=== PATIENT | female | born 1970 | race Hispanic/Latino ===

== ENCOUNTER 2018-03-24 05:31 | Emergency (ER) | payer OTHER ==
[~2018-03-24] VITALS: Ht 162.6 cm; Wt 83.5 kg
[2018-03-24] MEDS ORDERED: MORPHINE SULFATE 2 MG/ML SYR IV STA (05:45)
[2018-03-24] MEDS ORDERED: ONDANSETRON HCL INJ 2 MG/ML VIAL IV STA (05:45)
[2018-03-24] MEDS ORDERED: PANTOPRAZOLE 40 MG 10ML VIAL IV STA (05:45)
[2018-03-24] MEDS ORDERED: SODIUM CHLORIDE 0.9% 1000ML 1,000 ML IV STA (05:45)
[2018-03-24 06:07] LABS: BASOPHILS % 0.4 % (0.0-1.0); EOSINOPHILS # (AUTO) 0.2 (0.0-0.4); EOSINOPHILS % 2.1 % (0.0-6.0); HEMATOCRIT 37.4 % (34.2-44.1); HEMOGLOBIN 11.5 g/dL (12.0-16.0); LYMPHOCYTES # (AUTO) 2.4 (1.0-3.2); LYMPHOCYTES % 28.1 % (18.0-39.1); MEAN CORPUSCULAR HEMOGLOBIN 22.6 pg (28-32); MEAN CORPUSCULAR HGB CONC 30.7 g/dL (31-35); MEAN CORPUSCULAR VOLUME 73.6 fL (81-99); MONOCYTES # (AUTO) 0.7 (0.2-0.8); MONOCYTES % 7.8 % (4.4-11.3); NEUTROPHILS # (AUTO) 5.2 (2.1-6.9); NEUTROPHILS % 61.4 % (38.7-80.0); PLATELET COUNT 287 x10e3/uL (140-360); RED BLOOD COUNT 5.08 x10e6/uL (3.6-5.1)
[2018-03-24 06:15] LABS: CLARITY,URINE CLEAR (CLEAR); COLOR,URINE YELLOW (YELLOW); LEUKOCYTE ESTERASE ,URINE TRACE (NEGATIVE); NITRITE,URINE NEGATIVE (NEGATIVE)
[2018-03-24 06:16] LABS: BILIRUBIN,URINE NEGATIVE (NEGATIVE); INR 1.15; KETONES,URINE NEGATIVE (NEGATIVE); PROTEIN,URINE DIPSTICK NEGATIVE (NEGATIVE); PROTHROMBIN TIME 13.8 seconds (11.9-14.5); URINE UROBILINOGEN 0.2 mg/dL (0.2 - 1)
[2018-03-24 06:17] LABS: PARTIAL THROMBOPLASTIN TIME 29.8 seconds (23.8-35.5); PREGNANCY TEST, URINE NEGATIVE (NEGATIVE)
[2018-03-24 06:32] LABS: ALANINE AMINOTRANSFERASE 88 IU/L (0-55); ALBUMIN 3.5 g/dL (3.5-5.0); ALBUMIN/GLOBULIN RATIO 0.8 (0.8-2.0); ALKALINE PHOSPHATASE 90 IU/L (40-150); ANION GAP 10.9 mmol/L (8-16); BLOOD UREA NITROGEN 8 mg/dL (7-26); BUN/CREATININE RATIO 12 (6-25); CALCIUM 9.1 mg/dL (8.4-10.2); CARBON DIOXIDE 25 mmol/L (22-29); CHLORIDE 100 mmol/L (98-107); CREATINE KINASE 50 IU/L (29-168); CREATININE, SERUM 0.69 mg/dL (0.57-1.11); EST GLOMERULAR FILTRATION RATE > 60 ML/MIN (60-); GLUCOSE 265 mg/dL (74-118); LIPASE 36 U/L (8-78); MAGNESIUM 1.4 MG/DL (1.3-2.1); POTASSIUM 3.9 mmol/L (3.5-5.1); SODIUM 132 mmol/L (136-145)
[2018-03-24 07:16] LABS: BACTERIA,URINE RARE /HPF; EPITHELIAL CELLS,URINE FEW /LPF
[2018-03-24 07:17] LABS: AMORPHOUS SEDIMENT,URINE FEW (FEW)
--- NOTE | 2018-03-24 09:07 | Diagnostic Imaging Report ---
PROCEDURE: CT ABDOMEN AND PELVIS WITH CONTRAST TECHNIQUE: The abdomen and pelvis were scanned utilizing a multidetector helical scanner from the diaphragm to the lesser trochanter after the IV administration of 100 cc of Isovue 370 and the oral administration of water. Coronal and sagittal multiplanar reformations were obtained. DLP: 823.62 mGy-cm COMPARISON: None. INDICATIONS: LEFT LOWER QUADRANT PAIN FINDINGS: LOWER THORAX: Normal. HEPATOBILIARY: Diffuse hepatic steatosis without focal hepatic lesions. No biliary ductal dilatation. SPLEEN: No splenomegaly. There is a 1.5 cm splenule. PANCREAS: No focal masses or ductal dilatation. ADRENALS: No adrenal nodules. KIDNEYS/URETERS: Nonobstructing 8-10 mm left lower pole renal stone. No hydronephrosis or solid mass lesions. PELVIC ORGANS/BLADDER: Unremarkable. PERITONEUM / RETROPERITONEUM: No free air or fluid. LYMPH NODES: Small less than 1 cm in size anterior diaphragmatic lymph node. VESSELS: Calcified plaque at the origin of the celiac trunk. GI TRACT: No distention or wall thickening. The appendix is normal. BONES AND SOFT TISSUES: Mild degenerative changes of the spine. There is a fat containing umbilical hernia measuring 4.4 cm. The opening of the hernia sac measures 1.2 cm. IMPRESSION: 1. Left lower pole renal stone. 2. Diffuse hepatic steatosis. 3. Fat-containing umbilical hernia. Randy Platt D.O. Dictated by: Randy Platt D.O. on 03/24/2018 at 9:11 Electronically approved by: Randy Platt D.O. on 03/24/2018 at 9:11
[2018-03-24] MEDS ORDERED: MACROBID 100 M100 MG PO (09:24)
[2018-03-24] MEDS ORDERED: SODIUM CHLORIDE 0.9% 50ML 50 ML ONE (14:28)
[2018-03-24] MEDS ORDERED: IOPAMIDOL 370 MG/ML 200 ML INFUS..BTL INJ ONE (14:28)
[2018-04-04] MEDS ORDERED: LISINOPRIL10 MG PO (17:03)
[2018-04-04] MEDS ORDERED: GLYBURIDE5 MG PO (17:03)
[2018-04-04] MEDS ORDERED: ECOTRIN81 MG (17:03)
[2018-04-04] MEDS ORDERED: METFORMIN HCL850 MG PO (17:03)
== END 2018-03-24 10:20 | disposition home or self-care (01) ==
LOC: ER 05:31
DX: R10.32 Left lower quadrant pain (principal); N30.91 Cystitis, unspecified with hematuria; E11.9 Type 2 diabetes mellitus without complications; K21.9 Gastro-esophageal reflux disease without esophagitis
CPT/HCPCS: 36415; 74177; 80053; 81001; 81025; 82550; 82553; 83605; 83690; 83735; 84484; 85025; 85610; 85730; 87086; 87186; 99284; J2270; J2405; J7030; Q9967

== ENCOUNTER → 2018-04-09 | Day surgery (SDC) | payer OTHER ==
[2018-04-04 13:42] LABS: BASOPHILS % 0.3 % (0.0-1.0); EOSINOPHILS # (AUTO) 0.2 (0.0-0.4); EOSINOPHILS % 1.9 % (0.0-6.0); HEMATOCRIT 38.3 % (34.2-44.1); HEMOGLOBIN 11.7 g/dL (12.0-16.0); LYMPHOCYTES # (AUTO) 2.4 (1.0-3.2); LYMPHOCYTES % 23.3 % (18.0-39.1); MEAN CORPUSCULAR HEMOGLOBIN 22.5 pg (28-32); MEAN CORPUSCULAR HGB CONC 30.5 g/dL (31-35); MEAN CORPUSCULAR VOLUME 73.8 fL (81-99); MONOCYTES % 9.3 % (4.4-11.3); NEUTROPHILS # (AUTO) 6.7 (2.1-6.9); PLATELET COUNT 298 x10e3/uL (140-360); RED BLOOD COUNT 5.19 x10e6/uL (3.6-5.1); RED CELL DISTRIBUTION WIDTH 15.9 % (11.7-14.4)
[2018-04-04 13:57] LABS: ANION GAP 14.7 mmol/L (8-16); BLOOD UREA NITROGEN 13 mg/dL (7-26); BUN/CREATININE RATIO 17 (6-25); CALCIUM 9.8 mg/dL (8.4-10.2); CARBON DIOXIDE 23 mmol/L (22-29); CHLORIDE 102 mmol/L (98-107); CREATININE, SERUM 0.78 mg/dL (0.57-1.11); EST GLOMERULAR FILTRATION RATE > 60 ML/MIN (60-); POTASSIUM 4.7 mmol/L (3.5-5.1); SODIUM 135 mmol/L (136-145)
[2018-04-04 14:07] LABS: GLUCOSE 417 mg/dL (74-118)
[~2018-04-09] MED LIST: CEFAZOLIN SOD 2 GM/D5W 50ML 50 ML IV ONE; CEFTRIAXONE SOD 1 GM VIAL ONE; ECOTRIN81 MG; GLYBURIDE5 MG PO; LISINOPRIL10 MG PO; MACROBID 100 M100 MG PO; METFORMIN HCL850 MG PO
--- NOTE | 2018-04-09 13:16 | Diagnostic Imaging Report ---
PROCEDURE:X-RAY ABDOMEN - KUB COMPARISON:CT abdomen and pelvis with contrast 03/24/2018. INDICATIONS:PREOPERATIVE FOR RENAL STONE FINDINGS: 9 mm ovoid calculus projects over the lower pole of the left renal shadow. No additional suspicious calcifications project over the renal shadows or expected ureteral courses. Bowel gas pattern is nonobstructive. Regional skeletal structures are intact. CONCLUSION: 9 mm left lower pole renal calculus, unchanged in position relative to financial services consultant tomogram from CT abdomen and pelvis 03/24/2018. Dictated by: Elijah Solis M.D. on 04/09/2018 at 13:21 Electronically approved by: Elijah Solis M.D. on 04/09/2018 at 13:21
== END | disposition home or self-care (01) ==
LOC: LAB 04-04 05:00 → OR 10:27 → EDSTATUS 13:00
PROVIDERS: ATTEND Surgery
DX: K42.9 Umbilical hernia without obstruction or gangrene (principal); Z01.810 Encounter for preprocedural cardiovascular examination; Z01.812 Encounter for preprocedural laboratory examination; Z53.09 Procedure and treatment not carried out because of other contraindication
CPT/HCPCS: 36415; 74018; 80048; 81025; 82948; 85025; 93005; J0696

== ENCOUNTER → 2018-04-11 | Day surgery (SDC) | payer OTHER ==
[~2018-04-11] MED LIST changes: +BUPIVACAINE HCL 0.5% INJ 30 ML VIAL INJ ONE; -CEFTRIAXONE SOD 1 GM VIAL ONE; +DEXAMETHASONE SOD PHOS INJ 4 MG/ML VIAL ONE; +FENTANYL CITRATE/PF 100MCG/2 ML INJ ONE; +INSULIN REGULAR, HUMAN 100 UNIT/1 ML 3ML VIAL ONE; +KETOROLAC TROMETHAMINE 30 MG/ML VIAL ONE; +LIDOCAINE HCL 2% LOCAL INJ 5 ML SDV VIAL INJ ONE; +MIDAZOLAM HCL 2 MG/2 ML VIAL ONE; +ONDANSETRON HCL INJ 2 MG/ML VIAL ONE; +PROPOFOL IV EMULSION 10 MG/ML 20 ML VIAL ONE; +ROCURONIUM BROMIDE 10 MG/ML 5ML VIAL ONE; +SEVOFLURANE INHAL SOLN 250 ML PEN BTL ONE
--- NOTE | 2018-04-11 18:49 | Operative Report ---
DATE OF PROCEDURE: April 11, 2018 PREOPERATIVE DIAGNOSIS: Umbilical hernia. POSTOPERATIVE DIAGNOSIS: Umbilical hernia with ventral hernia. PROCEDURES PERFORMED: 1. Repair of umbilical hernia. 2. Repair of ventral hernia. SERVICE CENTER ASSISTANT: None. ANESTHESIA: General. INDICATIONS AND FINDINGS: Patient a 47-year-old female who presented complaints of pain in her umbilicus. CT scan revealed umbilical hernia. At surgery there were 2 separate hernias. There was an umbilical hernia with a fascial defect that was approximately 8 mm. Inferior to this was a ventral hernia with a fascial defect about 1.5 cm which contained a herniated mass that was about 3.5 cm in diameter and containing omentum which appeared chronically incarcerated. TECHNIQUE: After adequate general endotracheal anesthesia, patient in supine position, the abdomen was prepped and draped in sterile fashion with [place] solution. A transverse incision was made inferior to the umbilicus and carried down through the subcutaneous tissue. The umbilicus was dissected free from a herniated mass. The herniated mass at the umbilicus was found to be about 1.5 cm in diameter. This was dissected free down to the fascia and then reduced beneath the fascia. There was a fascial defect that was about 8 mm at this area. This was closed transversely with a running suture of 0 Prolene. Inferior to this about 1.5 to 2 cm was a larger herniated mass. This was dissected free from the surrounding tissues down to the fascia. There was chronically incarcerated omentum. The herniated mass was dissected free down to the fascia and freed from the fascia throughout the circumference of the hernia defect. Herniated mass once it was freed from the fascia was able to be reduced into the peritoneal cavity. This fascial defect also was closed directly transversely with a running suture of 0 Prolene. Hemostasis was seen to be adequate. The wound was irrigated with saline, inspected for hemostasis, which was seen to be adequate. The wound was then infiltrated with 1/2 percent Marcaine. The umbilicus was then sutured to the fascia using 3-0 Vicryl. The subcutaneous tissue was closed with a running suture 3-0 Vicryl. Skin was closed with a running subcuticular suture of 4-0 Vicryl. Dermabond and a sterile dressing were applied. The patient tolerated the procedure well. Estimated blood loss was 10 mL. There were no complications. All counts were correct. The patient was taken to the recovery room in satisfactory condition. Job#: [id number] EV cc:MATHEUS WILLS MD
== END | disposition home or self-care (01) ==
LOC: OR 13:21
PROVIDERS: ATTEND Surgery
DX: K43.6 Other and unspecified ventral hernia with obstruction, without gangrene (principal); K42.9 Umbilical hernia without obstruction or gangrene; E11.9 Type 2 diabetes mellitus without complications; I25.2 Old myocardial infarction; I10 Essential (primary) hypertension; F41.9 Anxiety disorder, unspecified; Z79.84 Long term (current) use of oral hypoglycemic drugs; Z79.82 Long term (current) use of aspirin; Z68.39 Body mass index [BMI] 39.0-39.9, adult; Z87.440 Personal history of urinary (tract) infections
CPT/HCPCS: 36415; 49561; 49585; 82948; J1100; J1885; J2001; J2250; J2405

== ENCOUNTER → 2019-07-30 | Outpatient (CLI) | payer OTHER ==
[~2019-07-30] MED LIST changes: -BUPIVACAINE HCL 0.5% INJ 30 ML VIAL INJ ONE; -CEFAZOLIN SOD 2 GM/D5W 50ML 50 ML IV ONE; -DEXAMETHASONE SOD PHOS INJ 4 MG/ML VIAL ONE; -FENTANYL CITRATE/PF 100MCG/2 ML INJ ONE; -INSULIN REGULAR, HUMAN 100 UNIT/1 ML 3ML VIAL ONE; -KETOROLAC TROMETHAMINE 30 MG/ML VIAL ONE; -LIDOCAINE HCL 2% LOCAL INJ 5 ML SDV VIAL INJ ONE; -MIDAZOLAM HCL 2 MG/2 ML VIAL ONE; -ONDANSETRON HCL INJ 2 MG/ML VIAL ONE; -PROPOFOL IV EMULSION 10 MG/ML 20 ML VIAL ONE; -ROCURONIUM BROMIDE 10 MG/ML 5ML VIAL ONE; -SEVOFLURANE INHAL SOLN 250 ML PEN BTL ONE
--- NOTE | 2019-07-31 08:46 | Diagnostic Imaging Report ---
EXAMINATION: MRI of the lumbar spine without contrast HISTORY: Low back pain radiating to the right lower extremity with numbness COMPARISON: None. TECHNIQUE: Sagittal T1, T2, STIR; axial T2 and proton density. FINDINGS: It is assumed that there are 5 lumbar vertebrae. Curvature/Alignment: Normal lordosis. Vertebrae: No evidence of recent fracture, infection, or neoplasm. Conus: Normal, terminating at L1 Cauda equina: Circumferential narrowing of the thecal sac/cauda equina at L4-5 due to severe stenoses as detailed below. Lower thoracic: Unremarkable. Paraspinal soft tissues: Unremarkable. Degenerative changes: L1-L2: Unremarkable. L2-L3: Minimal symmetric disc bulge and facet arthrosis without canal or foraminal stenoses. L3-L4: Decreased disc T2 signal intensity, symmetric disc bulge, ligamenta flava thickening and facet arthrosis. Mild spinal canal and bilateral foraminal stenoses mainly on the left. L4-L5: Decreased disc height and T2 signal intensity, symmetric disc bulge, ligamenta flava thickening and severe facet arthrosis. Grade 1 degenerative anterolisthesis. Severe spinal canal and minimal foraminal narrowing. L5-S1: Decreased disc T2 signal intensity, minimal symmetric disc bulge and moderate facet arthrosis. Minimal canal and foramina narrowing. IMPRESSION: 1. Mild degenerative spinal canal and bilateral foraminal stenoses at L3-4. 2. Severe degenerative spinal canal stenosis at L4-5. 3. Grade 1 degenerative spondylolisthesis at L4-5. Signed by: Dr. Sara Rivera M.D. on 07/31/2019 8:43 AM
== END ==
LOC: MRI 14:40
PROVIDERS: ATTEND Family Medicine
DX: M54.41 Lumbago with sciatica, right side (principal)
CPT/HCPCS: 72148

== ENCOUNTER → 2019-10-15 | Day surgery (SDC) | payer BC ==
[~2019-10-15] MED LIST changes: +CRESTOR10 MG PO; +DEXAMETHASONE SOD PHOS 10 MG/1 ML VIAL ONE; +FENTANYL CITRATE/PF 100MCG/2 ML INJ ONE; +GABAPENTIN300 MG PO; +GLIMEPIRIDE2 MG PO; +LIDOCAINE HCL 1% 30ML-PF VIAL ONE; +LOSARTAN POTAS100 MG PO; +MIDAZOLAM HCL 2 MG/2 ML VIAL ONE; +PROPOFOL IV EMULSION 10 MG/ML 20 ML VIAL ONE
[2019-10-15 07:40] VITALS: BP 120/61
== END | disposition home or self-care (01) ==
LOC: OR 05:31
PROVIDERS: ATTEND Physical Medicine & Rehabilitation Pain Medicine
DX: M54.16 Radiculopathy, lumbar region (principal); M48.061 Spinal stenosis, lumbar region without neurogenic claudication; M51.26 Other intervertebral disc displacement, lumbar region; E11.9 Type 2 diabetes mellitus without complications; I10 Essential (primary) hypertension; Z01.810 Encounter for preprocedural cardiovascular examination; Z79.84 Long term (current) use of oral hypoglycemic drugs; Z68.38 Body mass index [BMI] 38.0-38.9, adult
CPT/HCPCS: 36415; 64483; 81025; 82948; 93005; J1100; J2001; J2250; J2704; J3010; 77003

== ENCOUNTER 2019-11-19 16:53 | Outpatient (RCR) | payer OTHER ==
[~2019-11-19 16:53] MED LIST changes: -DEXAMETHASONE SOD PHOS 10 MG/1 ML VIAL ONE; -FENTANYL CITRATE/PF 100MCG/2 ML INJ ONE; -LIDOCAINE HCL 1% 30ML-PF VIAL ONE; -MIDAZOLAM HCL 2 MG/2 ML VIAL ONE; -PROPOFOL IV EMULSION 10 MG/ML 20 ML VIAL ONE
== END 2019-11-28 ==
LOC: PT 16:53
PROVIDERS: ATTEND Neurological Surgery
DX: M48.062 Spinal stenosis, lumbar region with neurogenic claudication (principal)
CPT/HCPCS: 97139

== ENCOUNTER 2019-12-01 16:56 | Outpatient (RCR) | payer BC, OTHER | END 2019-12-29 | LOC: PT 16:56 | PROVIDERS: ATTEND Neurological Surgery | DX: M17.12 Unilateral primary osteoarthritis, left knee (principal) | CPT/HCPCS: 97139 ==

== ENCOUNTER → 2020-07-01 | Day surgery (SDC) | payer BC, OTHER ==
[~2020-07-01] MED LIST changes: +ACETAMINOP325 MG/10 PO; +BACTRIM DS TAB1 EACH PO; +DEXAMETHASONE SOD PHOS 10 MG/1 ML VIAL ONE; +FENTANYL CITRATE/PF 100MCG/2 ML INJ ONE; +GABAPENTIN400 MG PO; +IOPAMIDOL 200 MG/ML 20 ML VIAL IT ONE; +LIDOCAINE HCL 1% 30ML-PF VIAL ONE; +LIDOCAINE HCL 2% LOCAL INJ 5 ML SDV VIAL INJ ONE; +LISINOPRIL2.5 MG PO; +MIDAZOLAM HCL 2 MG/2 ML VIAL ONE; +OLMESARTAN-HCT1 EAC1 PO; +PROPOFOL IV EMULSION 10 MG/ML 20 ML VIAL ONE; +TIZANIDINE HCL4 MG PO; +VICTOZA 3-0.6 MG/0.1 SC
[2020-07-01 07:25] VITALS: BP 143/70
== END | disposition home or self-care (01) ==
LOC: OR 05:30
PROVIDERS: ATTEND Physical Medicine & Rehabilitation Pain Medicine
DX: M54.16 Radiculopathy, lumbar region (principal); M51.26 Other intervertebral disc displacement, lumbar region; M48.062 Spinal stenosis, lumbar region with neurogenic claudication; I10 Essential (primary) hypertension; E11.9 Type 2 diabetes mellitus without complications; Z01.810 Encounter for preprocedural cardiovascular examination; Z01.812 Encounter for preprocedural laboratory examination; Z11.59 Encounter for screening for other viral diseases; Z79.84 Long term (current) use of oral hypoglycemic drugs
CPT/HCPCS: 36415; 64483; 64484; 81025; 82948; 93005; J1100; J2001 ×2; J2250; J2704; J3010; Q9967; U0002; 77003

== ENCOUNTER → 2020-08-19 | Outpatient (CLI) | payer BC, OTHER ==
[~2020-08-19] MED LIST changes: -DEXAMETHASONE SOD PHOS 10 MG/1 ML VIAL ONE; -FENTANYL CITRATE/PF 100MCG/2 ML INJ ONE; -IOPAMIDOL 200 MG/ML 20 ML VIAL IT ONE; -LIDOCAINE HCL 1% 30ML-PF VIAL ONE; -LIDOCAINE HCL 2% LOCAL INJ 5 ML SDV VIAL INJ ONE; -MIDAZOLAM HCL 2 MG/2 ML VIAL ONE; -PROPOFOL IV EMULSION 10 MG/ML 20 ML VIAL ONE
== END ==
LOC: RAD 09:03
PROVIDERS: ATTEND Family Medicine
DX: R07.81 Pleurodynia (principal); R07.89 Other chest pain
CPT/HCPCS: 71101

== ENCOUNTER → 2020-08-26 | Outpatient (CLI) | payer OTHER, BC | LOC: CT 10:30 | PROVIDERS: ATTEND Family Medicine | DX: N20.0 Calculus of kidney (principal) | CPT/HCPCS: 74176 ==

== ENCOUNTER → 2020-09-09 | Day surgery (SDC) | payer OTHER, BC ==
[2020-09-06 13:07] LABS: ANION GAP 12.3 mmol/L (8-16); BLOOD UREA NITROGEN 15 mg/dL (7-26); BUN/CREATININE RATIO 21 (6-25); CALCIUM 9.2 mg/dL (8.4-10.2); CARBON DIOXIDE 25 mmol/L (22-29); CHLORIDE 103 mmol/L (98-107); CREATININE, SERUM 0.72 mg/dL (0.57-1.11); EST GLOMERULAR FILTRATION RATE > 60 ML/MIN (60-); GLUCOSE 109 mg/dL (74-118); POTASSIUM 4.3 mmol/L (3.5-5.1); SODIUM 136 mmol/L (136-145)
[~2020-09-09] MED LIST changes: +LIDOCAINE HCL 2% LOCAL INJ 5 ML SDV VIAL INJ ONE; +ONDANSETRON HCL INJ 2MG/ML 2ML 2 MG/ML VIAL ONE; +PROPOFOL IV EMULSION 10 MG/ML 20 ML VIAL ONE; +SEVOFLURANE INHAL SOLN 250 ML PEN BTL ONE
[2020-09-09 10:10] VITALS: BP 144/75
== END | disposition home or self-care (01) ==
LOC: OR 05:52
PROVIDERS: ATTEND Urology
DX: N20.0 Calculus of kidney (principal); N39.0 Urinary tract infection, site not specified; R35.1 Nocturia; I10 Essential (primary) hypertension; E11.9 Type 2 diabetes mellitus without complications; Z91.19 Patient's noncompliance with other medical treatment and regimen; E66.01 Morbid (severe) obesity due to excess calories; Z01.810 Encounter for preprocedural cardiovascular examination; Z01.812 Encounter for preprocedural laboratory examination; Z01.818 Encounter for other preprocedural examination; Z20.828 Contact with and (suspected) exposure to other viral communicable diseases; Z79.84 Long term (current) use of oral hypoglycemic drugs; Z68.42 Body mass index [BMI] 45.0-49.9, adult; Z80.51 Family history of malignant neoplasm of kidney
CPT/HCPCS: 36415 ×2; 50590; 74018; 80048; 81025; 82948; 93005; J2001; J2405; J2704; U0002

== ENCOUNTER → 2021-05-11 | Outpatient (CLI) | payer OTHER, BC ==
[~2021-05-11] MED LIST changes: +HYDROCODON-ACE1 EA11 PO; -LIDOCAINE HCL 2% LOCAL INJ 5 ML SDV VIAL INJ ONE; +MOTRIN800 MG PO; -ONDANSETRON HCL INJ 2MG/ML 2ML 2 MG/ML VIAL ONE; +PREDNISONE20 MG PO; -PROPOFOL IV EMULSION 10 MG/ML 20 ML VIAL ONE; -SEVOFLURANE INHAL SOLN 250 ML PEN BTL ONE; +VICODIN HP 10-1 EAC1 PO
== END ==
LOC: EDSEX 16:48 → CT 16:48 → MERGE 16:48
PROVIDERS: ATTEND Family Medicine
DX: R10.9 Unspecified abdominal pain (principal)
CPT/HCPCS: 74176

== ENCOUNTER 2021-05-16 09:35 | Emergency (ER) | payer OTHER, BC ==
[~2021-05-16] VITALS: Ht 167.6 cm; Wt 110.7 kg
[~2021-05-16 09:35] MED LIST changes: -HYDROCODON-ACE1 EA11 PO; -MOTRIN800 MG PO; -PREDNISONE20 MG PO; -VICODIN HP 10-1 EAC1 PO
[2021-05-16] MEDS ORDERED: KETOROLAC TROMETHAMINE 60 MG/2 ML VIAL IM ONE (10:00)
[2021-05-16] MEDS ORDERED: DIAZEPAM INJ 5 MG/ML 2 ML IM STA (10:20)
[2021-05-16] MEDS ORDERED: KETOROLAC TROMETHAMINE 60 MG/2 ML VIAL ONE (10:31)
[2021-05-16] MEDS ORDERED: VICODIN HP 10-1 EAC1 PO (11:02)
[2021-05-16] MEDS ORDERED: PREDNISONE20 MG PO (11:02)
[2021-05-16] MEDS ORDERED: MOTRIN800 MG PO (11:02)
[2021-05-16 11:22] VITALS: BP 179/101
[2021-05-16] MEDS ORDERED: HYDROCODON-ACE1 EA11 PO (12:26)
== END 2021-05-16 11:25 | disposition home or self-care (01) ==
LOC: FSED 09:48
DX: M54.42 Lumbago with sciatica, left side (principal); E11.9 Type 2 diabetes mellitus without complications
CPT/HCPCS: 74176; 99283; J1885; J3360

== ENCOUNTER 2022-12-17 14:10 | Emergency (ER) | payer BC ==
[~2022-12-17] VITALS: Ht 167.6 cm; Wt 113.7 kg
[~2022-12-17 14:10] MED LIST changes: +HYDROCODON-ACE1 EA11 PO; +MOTRIN800 MG PO; +PREDNISONE20 MG PO; +VICODIN HP 10-1 EAC1 PO
[2022-12-17] MEDS ORDERED: SODIUM CHLORIDE 0.9% 1000ML 1,000 ML IV SCH (15:00)
[2022-12-17] MEDS ORDERED: ONDANSETRON HCL INJ 2MG/ML 2ML 2 MG/ML VIAL IV STA (15:01)
[2022-12-17] MEDS ORDERED: SODIUM CHLORIDE 0.9% 1000ML 1,000 ML ONE (15:11)
[2022-12-17] MEDS ORDERED: ONDANSETRON HCL INJ 2MG/ML 2ML 2 MG/ML VIAL ONE (15:12)
[2022-12-17] MEDS ORDERED: MACROBID 100 M100 MG PO (15:58)
[2022-12-17] MEDS ORDERED: ONDANSETRON ODT4 MG PO (15:58)
== END 2022-12-17 16:23 | disposition home or self-care (01) ==
LOC: FSED 14:15
DX: R53.1 Weakness (principal); R11.0 Nausea; I10 Essential (primary) hypertension; E11.9 Type 2 diabetes mellitus without complications; E78.5 Hyperlipidemia, unspecified; F32.A Depression, unspecified; M54.9 Dorsalgia, unspecified; G89.29 Other chronic pain
CPT/HCPCS: 80048; 80076; 81003; 85025; 96374; 99284; J2405; J7030

== ENCOUNTER 2024-08-20 17:36 | Inpatient (IN) | payer BC, OTHER ==
[~2024-08-20] VITALS: Ht 167.6 cm; Wt 112.5 kg
[~2024-08-20 17:36] MED LIST changes: +ONDANSETRON ODT4 MG PO
[2024-08-20] MEDS ORDERED: LISINOPRIL2.5 MG PO (18:23)
[2024-08-20] MEDS ORDERED: METFORMIN HCL500 MG PO (18:23)
[2024-08-20] MEDS ORDERED: SODIUM CHLORIDE 0.9% 1000ML 1,000 ML ONE (20:00)
[2024-08-20] MEDS ORDERED: IOPAMIDOL 370 MG/ML 100 ML INFUS..BTL INJ ONE (20:12)
[2024-08-20] MEDS: ONDANSETRON HCL INJ 2MG/ML 2ML 2 MG/ML VIAL IV STA (20:13)
[2024-08-20] MEDS: FAMOTIDINE 20 MG/2 ML VIAL IV STA (20:13)
[2024-08-20] MEDS: SODIUM CHLORIDE 0.9% 1000ML 1,000 ML IV SCH (20:13)
[2024-08-20] MEDS: SODIUM CHLORIDE 0.9% 500ML 500 ML IV ONE (21:23)
[2024-08-21] VITALS (10 sets, daily range): BP systolic 123–157; BP diastolic 59–74; PULSE 73–97; RESP 15–18; TEMP 97.5–98.3; O2SAT 98–100
[2024-08-21] MEDS ORDERED: DEXTROSE 50% SYRINGE 50 ML IV PRN
[2024-08-21] MEDS ORDERED: ACETAMINOPHEN 325 MG TAB PO PRN (00:15)
[2024-08-21] MEDS ORDERED: INFLUENZA VIRUS VAC SPLIT INJ 0.5 ML SYR IM SCH (02:00)
[2024-08-21] MEDS ORDERED: METOPROLOL SUCC50 MG PO (02:12)
[2024-08-21] MEDS ORDERED: FUROSEMIDE40 MG PO (02:12)
[2024-08-21] MEDS ORDERED: ROSUVASTATIN CA10 MG PO (02:12)
[2024-08-21] MEDS ORDERED: METFORMIN HCL500 M1 PO (02:12)
[2024-08-21] MEDS ORDERED: GLIMEPIRIDE4 MG PO (02:12)
[2024-08-21] MEDS ORDERED: OLMESARTAN-HCT1 EAC2 PO (02:12)
[2024-08-21] MEDS: SODIUM CHLORIDE 0.9% 1000ML 1,000 ML IV SCH (02:40)
[2024-08-21] MEDS: INSULIN LISPRO 100 UNIT/1 ML 3ML VIAL SQ SCH (07:30)
[2024-08-21 11:00] LABS: BASOPHILS % 0.3 % (0.0-1.0); EOSINOPHILS # (AUTO) 0.2 (0.0-0.4); EOSINOPHILS % 2.8 % (0.0-6.0); HEMATOCRIT 39.2 % (34.2-44.1); LYMPHOCYTES # (AUTO) 1.7 (1.0-3.2); LYMPHOCYTES % 24.6 % (18.0-39.1); MEAN CORPUSCULAR HEMOGLOBIN 28.4 pg (28-32); MEAN CORPUSCULAR HGB CONC 30.6 g/dL (31-35); MEAN CORPUSCULAR VOLUME 92.7 fL (81-99); MONOCYTES # (AUTO) 0.5 (0.2-0.8); MONOCYTES % 7.8 % (4.4-11.3); NEUTROPHILS # (AUTO) 4.4 (2.1-6.9); NEUTROPHILS % 64.2 % (38.7-80.0); PLATELET COUNT 202 x10e3/uL (140-360); RED BLOOD COUNT 4.23 x10e6/uL (3.6-5.1); RED CELL DISTRIBUTION WIDTH 13.7 % (11.7-14.4); WHITE BLOOD COUNT 6.88 x10e3/uL (4.8-10.8)
[2024-08-21 11:26] LABS: ALBUMIN 3.2 g/dL (3.5-5.0); ALBUMIN/GLOBULIN RATIO 0.8 (0.8-2.0); ANION GAP 13.7 mmol/L (8-16); BILIRUBIN,TOTAL 0.3 mg/dL (0.2-1.2); CALCIUM 9.3 mg/dL (8.4-10.2); CREATININE, SERUM 1.38 mg/dL (0.57-1.11); POTASSIUM 4.7 mmol/L (3.5-5.1); TOTAL PROTEIN 7.1 g/dL (6.5-8.1)
[2024-08-21] MEDS: METOPROLOL SUCCINATE 50 MG TAB XL PO SCH (15:09)
[2024-08-21] MEDS: LISINOPRIL 2.5 MG TAB PO SCH (16:53)
[2024-08-21] MEDS: ATORVASTATIN 20 MG TAB PO SCH (20:29)
[2024-08-21] MEDS: HEPARIN SOD (PORCINE) 5,000 UNIT/ML VIAL SC SCH (20:30)
[2024-08-21] MEDS: ONDANSETRON HCL INJ 2MG/ML 2ML 2 MG/ML VIAL IV PRN (21:39)
[2024-08-21] MEDS: CALCIUM CARBONATE 500 MG CHEWABLE TABS PO PRN (21:50)
[2024-08-22] VITALS: BP 136/58; PULSE 86; RESP 18; TEMP 98.3; O2SAT 99
[2024-08-22 04:00] VITALS: BP 143/91; PULSE 72; RESP 18; TEMP 97.7; O2SAT 99
[2024-08-22 08:00] VITALS: BP 145/65; PULSE 91; RESP 18; TEMP 97.5; O2SAT 99
[2024-08-22 08:05] LABS: BASOPHILS % 0.4 % (0.0-1.0); EOSINOPHILS # (AUTO) 0.2 (0.0-0.4); EOSINOPHILS % 2.8 % (0.0-6.0); HEMATOCRIT 38.5 % (34.2-44.1); HEMOGLOBIN 12.1 g/dL (12.0-16.0); LYMPHOCYTES # (AUTO) 2.2 (1.0-3.2); LYMPHOCYTES % 27.5 % (18.0-39.1); MEAN CORPUSCULAR HEMOGLOBIN 28.2 pg (28-32); MEAN CORPUSCULAR HGB CONC 31.4 g/dL (31-35); MEAN CORPUSCULAR VOLUME 89.7 fL (81-99); MONOCYTES # (AUTO) 0.6 (0.2-0.8); MONOCYTES % 8.1 % (4.4-11.3); NEUTROPHILS # (AUTO) 4.8 (2.1-6.9); NEUTROPHILS % 60.9 % (38.7-80.0); PLATELET COUNT 225 x10e3/uL (140-360); RED BLOOD COUNT 4.29 x10e6/uL (3.6-5.1); RED CELL DISTRIBUTION WIDTH 13.5 % (11.7-14.4); WHITE BLOOD COUNT 7.82 x10e3/uL (4.8-10.8)
[2024-08-22 08:15] VITALS: BP 145/65; PULSE 91; RESP 18; TEMP 97.5; O2SAT 98
[2024-08-22 08:25] LABS: ANION GAP 13.7 mmol/L (8-16); CALCIUM 9.6 mg/dL (8.4-10.2); CREATININE, SERUM 1.1 mg/dL (0.57-1.11); POTASSIUM 4.7 mmol/L (3.5-5.1)
[2024-08-22] MEDS: GLIMEPIRIDE 2 MG TAB PO SCH (08:59)
[2024-08-22] MEDS ORDERED: CIPRO500 MG PO (11:07)
[2024-08-22 12:19] VITALS: BP 139/72; PULSE 86; RESP 16; TEMP 97.8; O2SAT 100
== END 2024-08-22 14:30 | disposition home or self-care (01) | DRG 690 ==
LOC: FSED 17:40 → ERHOLD 23:58 → MED/SURG 08-21 01:37 → OBSVTOIN 08-21 15:12
PROVIDERS: ADMIT Internal Medicine; ATTEND Internal Medicine
DX: N30.80 Other cystitis without hematuria (principal); N17.9 Acute kidney failure, unspecified; B96.1 Klebsiella pneumoniae [K. pneumoniae] as the cause of diseases classified elsewhere; E86.0 Dehydration; I10 Essential (primary) hypertension; E78.00 Pure hypercholesterolemia, unspecified; E11.9 Type 2 diabetes mellitus without complications; Z79.85 Long-term (current) use of injectable non-insulin antidiabetic drugs; Z79.84 Long term (current) use of oral hypoglycemic drugs; F41.8 Other specified anxiety disorders; K21.9 Gastro-esophageal reflux disease without esophagitis; K80.20 Calculus of gallbladder without cholecystitis without obstruction; Z11.52 Encounter for screening for COVID-19; Z87.442 Personal history of urinary calculi; Z80.8 Family history of malignant neoplasm of other organs or systems; Z79.899 Other long term (current) drug therapy
CPT/HCPCS: 36415; 74176; 80048; 80053; 82948; 85025; 87086; 87186; 99284; G0378; J0696; J1644; J2405; J7030; J7040; Q9967

== ENCOUNTER 2025-05-16 13:39 | Inpatient (IN) | payer OTHER ==
[~2025-05-16] VITALS: Ht 167.6 cm; Wt 108.6 kg
[~2025-05-16 13:39] MED LIST changes: +CIPRO500 MG PO; +FUROSEMIDE40 MG PO; +GLIMEPIRIDE4 MG PO; +METFORMIN HCL500 M1 PO; +METFORMIN HCL500 MG PO; +METOPROLOL SUCC50 MG PO; +OLMESARTAN-HCT1 EAC2 PO; +ROSUVASTATIN CA10 MG PO
[2025-05-16] MEDS ORDERED: DEXTROSE 50% SYRINGE 50 ML IV PRN ×3 (16:00→17:00)
[2025-05-16] MEDS: SODIUM CHLORIDE 0.9% 1000ML 1,000 ML IV SCH (16:08)
[2025-05-16 16:35] VITALS: PULSE 90; RESP 14; TEMP 97.7
[2025-05-16] MEDS ORDERED: CEFTRIAXONE 1 GM VIAL ONE (16:49)
[2025-05-16] MEDS ORDERED: ONDANSETRON HCL INJ 2MG/ML 2ML 2 MG/ML VIAL IV PRN (17:00)
[2025-05-16] MEDS ORDERED: SIMETHICONE 80 MG CHEW PO PRN (17:00)
[2025-05-16] MEDS ORDERED: MELATONIN 5 MG TABLET PO PRN (17:00)
[2025-05-16] MEDS ORDERED: ALBUTEROL/IPRATROPIUM 3 ML NEB NEB PRN (17:00)
[2025-05-16] MEDS ORDERED: DOCUSATE SODIUM 100 MG CAP PO PRN (17:00)
[2025-05-16] MEDS ORDERED: BENZONATATE 100 MG CAP PO PRN (17:00)
[2025-05-16] MEDS ORDERED: HYDRALAZINE HCL 20 MG/ML VIAL IV PRN (17:00)
[2025-05-16] MEDS ORDERED: DIPHENHYDRAMINE HCL 25 MG CAP PO PRN (17:00)
[2025-05-16] MEDS ORDERED: POTASSIUM CHLORIDE 20 MEQ TAB CR PO PRN (17:00)
[2025-05-16] MEDS ORDERED: ACETAMINOPHEN 325 MG TAB PO PRN (17:00)
[2025-05-16] MEDS ORDERED: LIDOCAINE 4% PATCH TP PRN (17:00)
[2025-05-16] MEDS: ENOXAPARIN SOD INJ 40 MG/0.4 ML SYR SC SCH (17:10)
[2025-05-16 17:20] VITALS: BP 132/59; PULSE 86; RESP 18; TEMP 97.7; O2SAT 99
[2025-05-16] MEDS: INSULIN REGULAR, HUMAN 100 UNIT/1 ML IV ONE (17:20)
[2025-05-16] MEDS ORDERED: POTASSIUM10 MEQ/100 IV (17:24)
[2025-05-16] MEDS ORDERED: TRIJARDY XR 251 EACH (17:24)
[2025-05-16] MEDS ORDERED: BENICAR20 MG PO (17:24)
[2025-05-16] MEDS ORDERED: ROSUVASTATIN CA10 MG (17:27)
[2025-05-16] MEDS ORDERED: MECLIZINE HCL 12.5 MG TAB PO PRN (17:45)
[2025-05-16 20:00] VITALS: BP_SYST 123; BP_SYST 91; BP_DIAS 47; BP_DIAS 57; BP_DIAS 61; PULSE 81; PULSE 83; PULSE 92; RESP 16; RESP 18; TEMP 97.9; O2SAT 100
[2025-05-16] MEDS: INSULIN LISPRO 100 UNIT/1 ML 3ML VIAL SQ SCH (22:00)
[2025-05-16] MEDS: INSULIN GLARGINE 100 UNITS/ML VIAL SQ SCH (22:00)
[2025-05-17] VITALS (7 sets, daily range): BP systolic 122–150; BP diastolic 57–76; PULSE 71–92; RESP 16–21; TEMP 97.7–98.5; O2SAT 95–100
[2025-05-17 05:57] LABS: BASOPHILS % 0.4 % (0.0-1.0); EOSINOPHILS % 2.5 % (0.0-6.0); LYMPHOCYTES % 33.8 % (18.0-39.1); MONOCYTES % 9.7 % (4.4-11.3); NEUTROPHILS % 53.5 % (38.7-80.0); RED CELL DISTRIBUTION WIDTH 13.1 % (11.7-14.4)
[2025-05-17 07:06] LABS: CHOL/HDL RATIO 4.6 (3.0-3.6); LDL CHOLESTEROL 65.0 MG/DL (60-130)
[2025-05-17 07:17] LABS: EST GLOMERULAR FILTRATION RATE 61.0 ML/MIN (>=60)
[2025-05-17] MEDS: PANTOPRAZOLE SOD 40 MG TABEC PO SCH (09:22)
[2025-05-17] MEDS ORDERED: ONDANSETRON HCL 4 MG ORAL DISINTEGRATING TAB PO PRN (11:30)
[2025-05-17] MEDS: INSULIN GLARGINE 100 UNITS/ML VIAL SQ SCH (20:37)
[2025-05-18] VITALS: BP 113/56; PULSE 69; RESP 18; TEMP 98.6; O2SAT 100
[2025-05-18 05:40] LABS: BASOPHILS % 0.4 % (0.0-1.0); EOSINOPHILS % 2.3 % (0.0-6.0); LYMPHOCYTES % 27.7 % (18.0-39.1); MONOCYTES % 9.1 % (4.4-11.3); NEUTROPHILS % 60.2 % (38.7-80.0); RED CELL DISTRIBUTION WIDTH 13.2 % (11.7-14.4)
[2025-05-18 06:32] LABS: EST GLOMERULAR FILTRATION RATE 69.0 ML/MIN (>=60)
[2025-05-18 08:00] VITALS: BP 131/52; PULSE 91; RESP 17; TEMP 97.8; O2SAT 100
[2025-05-18 09:30] VITALS: BP 113/56; PULSE 69; RESP 18; TEMP 98.6; O2SAT 100
[2025-05-18 12:00] VITALS: BP 131/65; PULSE 96; RESP 18; TEMP 98.1; O2SAT 100
== END 2025-05-18 15:20 | disposition home or self-care (01) | DRG 638 ==
LOC: FSED 13:46 → ERHOLD 15:59 → MED/SURG 17:15
PROVIDERS: ADMIT Internal Medicine; ATTEND Internal Medicine
DX: E11.65 Type 2 diabetes mellitus with hyperglycemia (principal); N17.9 Acute kidney failure, unspecified; N39.0 Urinary tract infection, site not specified; B96.1 Klebsiella pneumoniae [K. pneumoniae] as the cause of diseases classified elsewhere; E86.0 Dehydration; I10 Essential (primary) hypertension; E78.5 Hyperlipidemia, unspecified; M54.9 Dorsalgia, unspecified; R26.81 Unsteadiness on feet; F41.9 Anxiety disorder, unspecified; R79.89 Other specified abnormal findings of blood chemistry; F32.A Depression, unspecified; S82.891D Other fracture of right lower leg, subsequent encounter for closed fracture with routine healing; X58.XXXD Exposure to other specified factors, subsequent encounter; Z79.82 Long term (current) use of aspirin; Z79.84 Long term (current) use of oral hypoglycemic drugs; Z90.49 Acquired absence of other specified parts of digestive tract
CPT/HCPCS: 36415; 70450; 70551; 74176; 80048; 80053; 80061; 81003; 82948; 83036; 84443; 85025; 87086; 87186; 93306; 93880; 96374; 99284; J0696; J1650; J2470; J7030